=== PATIENT | female | born 1995 | race Caucasian/White ===

== ENCOUNTER 2019-09-30 21:54 | Day surgery (SDC) | payer OTHER ==
--- NOTE | 2019-09-30 23:15 | PDOC.LDHP ---
Labor and Delivery H&P Chief complaint: contractions HPI: Patient started having contraction at 0430. This afternoon she at 1600 they started getting stronger and closer together. She denies LOF or VB. Her contractions are mostly in her back. The is moving normally. Current gestational age (weeks): 40 (6 day ) Due date: 09/24/19 Dating criteria: second trimester ultrasound Grav: 1 Para: 0 Current complications: none Abnormal US findings: No Previous surgical history: other (tonsillectomy, adenoidectomy) Allergies/Adverse Reactions: Allergies Allergy/AdvReac Type Severity Reaction Status Date / Time No Known Allergies Allergy Verified 09/30/19 22:28 Social history: none - Physical Exam Vital signs reviewed and normal: yes General: breathing through contractions Lungs: nonlabored breathing Abdomen: gravid FHT: category 1 - Vaginal Exam cm dilated: 2 Effacement: 75% Station: -2 - OB Labs Blood type: O RH: positive Antibody Screen: negative HIV: negative RPR: negative HEPSAg: negative 1 hour GCT: negative GBS: negative Urine drug screen: negative Rubella: immune - Assessment Early labor. - Plan -: Discussed options with patient to stay for observation in hospital and walk or have Demerol and phenergine vs. return home. Patient will return home. L&D warnings given. If she does not return tonight in active labor, continue [facility] care with Carmelita Plaza CNM at [facility] in morning for regularly scheduled visit.
== END 2019-09-30 23:35 | disposition home or self-care (01) ==
LOC: L&D/OP 21:54
PROVIDERS: ATTEND Student in an Organized Health Care Education/Training Program
DX: O47.1 False labor at or after 37 completed weeks of gestation (principal); O48.0 Post-term pregnancy; Z3A.40 40 weeks gestation of pregnancy
CPT/HCPCS: 99282

== ENCOUNTER 2019-10-01 08:35 | Inpatient (IN) | payer OTHER ==
[2019-10-01] MEDS ORDERED: HYDROcodone/Acetaminophen 5/325 mg Tablet PO PRN ×4 (08:59→17:29)
[2019-10-01] MEDS ORDERED: Ibuprofen 800 MG TAB PO PRN (08:59)
[2019-10-01] MEDS ORDERED: Misoprostol 200 MCG TAB PR PRN (08:59)
[2019-10-01] MEDS ORDERED: Lidocaine 1% (PF) 30 ML VIAL SC PRN (08:59)
[2019-10-01] MEDS ORDERED: hydrALAZINE 20 MG/ML VIAL SLOW IVP PRN ×2 (08:59→17:29)
[2019-10-01] MEDS ORDERED: Methylergonovine 0.2 MG/ML VIAL IM PRN ×2 (08:59→17:29)
[2019-10-01] MEDS ORDERED: NS / Oxytocin 40 units/1000ml 1,000 ML IV PRN (08:59)
[2019-10-01] MEDS ORDERED: Promethazine HCl 25 MG/ML VIAL IM PRN ×2 (08:59→10:34)
[2019-10-01] MEDS ORDERED: Ondansetron PF 4 MG/2 ML Vial IVP PRN ×2 (08:59→10:34)
[2019-10-01] MEDS ORDERED: NS w/ Oxytocin 10 units 500 ML IV SCH (09:00)
[2019-10-01] MEDS ORDERED: Fentanyl 4 mcg/Bup 0.1% Cadd 100 ML ONE (09:12)
[2019-10-01] MEDS: Lactated Ringer's 1,000 ML IV SCH ×2 (09:20→11:31)
[2019-10-01 09:34] VITALS: BMI 29.6
[2019-10-01 09:40] LABS: Hemoglobin 14.4 g/dL (12.0-16.0); Mean Corpuscular HGB CONC 33.9 g/dL (32.0-36.0); Mean Corpuscular Hemoglobin 32.8 pg (27.0-31.0); Mean Corpuscular Volume 96.8 fL (78.0-98.0); Mean Platelet Volume 6.6 fL (7.4-10.4); Platelet Count 232 thou/uL (130-400); RBC Distribution Width 11.6 % (11.5-14.5); White Blood Cell (WBC) Count 16.9 thou/uL (4.8-10.8)
[2019-10-01 10:16] LABS: HBSAg Index 0.19 S/CO (0-0.99); Hep B Surf Ag Non-Reactive S/CO (NonReactive)
[2019-10-01 10:17] LABS: Syphilis Antibody Nonreactive (Nonreactive); Syphilis Antibody Index 0.17 S/CO (<1.00 Non-Reactive)
[2019-10-01] MEDS ORDERED: Lactated Ringer's 500 ML IV PRN (10:34)
[2019-10-01] MEDS ORDERED: Acetaminophen 325 MG TAB PO PRN (10:34)
[2019-10-01] MEDS ORDERED: ePHEDrine/0.9% NaCl/PF SYRINGE 50 mg/10 ml SLOW IVP PRN (10:34)
[2019-10-01] MEDS ORDERED: diphenhydrAMINE 50 MG/ML VIAL IVP PRN (10:34)
[2019-10-01] MEDS ORDERED: Naloxone HCl 0.4 mg/ml Vial IVP PRN ×2 (10:34)
[2019-10-01] MEDS ORDERED: Communication Order-Pharmacy FS SCH (10:45)
[2019-10-01] MEDS ORDERED: Fentanyl 4 mcg/Bupivacaine 0.1% Cassette 100 ML EPIDURAL SCH (10:45)
[2019-10-01] MEDS ORDERED: Lidocaine 1% PF 5 ML VIAL ONE (11:10)
[2019-10-01] MEDS ORDERED: Lidocaine 2% 10 ML INJ ONE (11:10)
--- NOTE | 2019-10-01 11:36 | PDOC.LDHP ---
Labor and Delivery H&P Chief complaint: contractions HPI: Patient was triaged last night and discharge home at 2cm/75/-2. She continued to contract every 4 mins all night long. Denies vb, lof. Current gestational age (weeks): 41 Due date: 09/24/19 Dating criteria: last menstrual period Grav: 1 Para: 0 Current complications: none Abnormal US findings: No Current medications: pre-david vitamins Previous surgical history: other (Tonsilectomy and adenoids) Allergies/Adverse Reactions: Allergies Allergy/AdvReac Type Severity Reaction Status Date / Time No Known Allergies Allergy Verified 10/01/19 09:32 Social history: none - Physical Exam Vital signs reviewed and normal: yes General: breathing through contractions Lungs: nonlabored breathing Abdomen: gravid FHT: category 1 - Vaginal Exam cm dilated: 2 (Pt declined until epidural) - OB Labs Blood type: O RH: positive Antibody Screen: negative HIV: negative RPR: negative HEPSAg: negative 1 hour GCT: negative GBS: negative Urine drug screen: negative Rubella: immune - Assessment L&D Assessment: term patient in labor - Plan Plan: admit to L&D, informed consent obtained, anesthesia consult for pain management
[2019-10-01] MEDS ORDERED: Bupivacaine/Epinephrine 0.25% 30 ML VIAL ONE (14:19)
--- NOTE | 2019-10-01 17:16 | PDOC.OPDEL ---
OB Operative/Delivery Note Delivery Dr/Surgeon: Light Pre-Delivery Diagnosis: active labor Procedure/Post Delivery Dx: spontaneous vaginal delivery Weeks gestation: 41 Anesthesia: epidural - Additional Findings/Plan Placenta delivered: spontaneous Repaired Obstetrical Laceration: 2nd degree Estimated blood loss: 250ml Post delivery plan: routine recovery
[2019-10-01] MEDS ORDERED: Benzocaine-Menthol 82.5 ML CAN TOP PRN (17:29)
[2019-10-01] MEDS ORDERED: Milk Of Magnesia 30 ML UDCUP PO PRN (17:29)
[2019-10-01] MEDS ORDERED: NS / Oxytocin 40 units/1000ml 1,000 ML IV SCH (17:29)
[2019-10-01] MEDS ORDERED: Bisacodyl 10 MG SUPP PR PRN (17:29)
[2019-10-01] MEDS: Ibuprofen 800 MG TAB PO SCH (20:46)
[2019-10-01] MEDS: Docusate Calcium (SURFAK) 240 MG CAP PO SCH (21:02)
[2019-10-02] MEDS: Ibuprofen 800 MG TAB PO SCH ×3 (05:30→22:42)
[2019-10-02] MEDS ORDERED: Adacel (T-DAP) 0.5 ML SYRINGE IM ONE (09:00)
[2019-10-02] MEDS ORDERED: Measles/Mumps/Rubella 10 MCG/0.5 ML VIAL SC ONE (09:00)
[2019-10-02] MEDS: Prenatal Vitamin 1 TAB PO SCH (09:11)
[2019-10-02] MEDS: Docusate Calcium (SURFAK) 240 MG CAP PO SCH ×2 (09:11→22:43)
[2019-10-02] MEDS: Ferrous Sulfate 325 MG TAB PO SCH ×2 (09:12→17:47)
[2019-10-02] MEDS: Simethicone Chewable 80 MG TAB PO PRN (14:58)
[2019-10-03] MEDS: Ibuprofen 800 MG TAB PO SCH (06:34)
[2019-10-03 09:48] VITALS: BP 116/73; TEMP 98.4
[2019-10-03] MEDS: Docusate Calcium (SURFAK) 240 MG CAP PO SCH (09:57)
[2019-10-03] MEDS: Simethicone Chewable 80 MG TAB PO PRN (09:57)
[2019-10-03] MEDS: Prenatal Vitamin 1 TAB PO SCH (09:57)
[2019-10-03] MEDS: Ferrous Sulfate 325 MG TAB PO SCH (10:12)
--- NOTE | 2019-10-03 11:56 | PDOC.PP ---
Post Progress Note Post Day #: 1 Subjective: doing well. would like to shower. is not great, will not latch PO intake tolerated: yes Flatus: yes Ambulation: yes Vital Signs (12 hours) Temp Pulse Resp BP Pulse Ox 10/03/19 08:00 98.4 F 81 20 116/73 100 Weight Weight 178 lb - Physical Examination General: NAD Respiratory: non-labored breathing Abdominal: + bowel sounds, lochia (minmal) Extremities: negative homans (B) Skin: no rash Neurological: no gross focal deficits Result Diagrams: 10/01/19 09:04 Additional Labs: Post Labs Blood Type O POSITIVE 10/01/19 09:04 Hep Bs Antigen Non-Reactive S/CO (NonReactive) 10/01/19 09:04 (1) (spontaneous vaginal delivery) Code(s): O80 - ENCOUNTER FOR FULL-TERM UNCOMPLICATED DELIVERY Status: Acute
== END 2019-10-03 13:45 | disposition home or self-care (01) | DRG 807 ==
LOC: L&D 08:35 → 3SW 18:47
PROVIDERS: ADMIT Obstetrics & Gynecology; ATTEND Obstetrics & Gynecology
PROC: 10E0XZZ Delivery of Products of Conception, External Approach (ICD-10-PCS; principal; 2019-10-01)
PROC: 0KQM0ZZ Repair Perineum Muscle, Open Approach (ICD-10-PCS; 2019-10-01)
DX: O48.0 Post-term pregnancy (principal); Z37.0 Single live birth; Z3A.41 41 weeks gestation of pregnancy; O70.1 Second degree perineal laceration during delivery
CPT/HCPCS: 36415; 51702; 85027; 86780; 86850; 86900; 86901; 87340; 99285; J2001; J2405; J2590